=== PATIENT | female | born 1980 | race Caucasian/White ===

== ENCOUNTER 2019-06-24 09:47 | Emergency (ER) | payer OTHER ==
[~2019-06-24] VITALS: Ht 162.6 cm; Wt 84.4 kg
[2019-06-26] MEDS ORDERED: XOPENEX0.63 MG/3 IH (15:36)
[2019-06-26] MEDS ORDERED: NORFLEX100MG PO (15:52)
[2019-06-26] MEDS ORDERED: KETO10TA2 PO (15:52)
[2019-06-26] MEDS ORDERED: ALLERGY RELIE15.8 ML NASAL (16:24)
== END 2019-06-24 16:14 | disposition home or self-care (01) ==
LOC: ER 09:47
DX: S82.62XA Displaced fracture of lateral malleolus of left fibula, initial encounter for closed fracture (principal); W18.39XA Other fall on same level, initial encounter; Y93.89 Activity, other specified; Y92.89 Other specified places as the place of occurrence of the external cause; Y99.8 Other external cause status

== ENCOUNTER 2019-06-27 09:42 | Day surgery (SDC) | payer OTHER ==
[~2019-06-27 09:42] MED LIST: ALLERGY RELIE15.8 ML NASAL; KETO10TA2 PO; NORFLEX100MG PO; XOPENEX0.63 MG/3 IH
[2019-06-27] MEDS ORDERED: PERCOCET 5-3251 EACH PO (16:12)
[2019-06-27] MEDS ORDERED: DUI500 PO (16:12)
[2019-06-27] MEDS ORDERED: ALEVE220 M1 PO (16:12)
== END 2019-06-27 19:30 | disposition home or self-care (01) ==
LOC: CIR.AMB 09:42
DX: S82.842A Displaced bimalleolar fracture of left lower leg, initial encounter for closed fracture (principal); S93.422A Sprain of deltoid ligament of left ankle, initial encounter; S90.02XA Contusion of left ankle, initial encounter
CPT/HCPCS: 27814; 27610; 27695; L8699